=== PATIENT | male | born 2000 | race Caucasian/White ===

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

== ENCOUNTER 2020-03-19 00:22 | Emergency (ER) | payer BC ==
[2020-03-19] MEDS ORDERED: IPRATROPIUM/ALBUTEROL 3 ML VIAL NEB ONE ×2 (00:23→00:32)
[2020-03-19] MEDS ORDERED: ALBUTEROL SULFATE 2.5 MG/3 ML VIAL NEB ONE ×2 (00:30→00:32)
[2020-03-19] MEDS ORDERED: SODIUM CHLORIDE 0.9% (FLUSH) 10 ML SYG IV PRN (00:30)
[2020-03-19] MEDS ORDERED: IPRATROPIUM/ALBUTEROL 3 ML VIAL INH ONE (00:30)
[2020-03-19] MEDS ORDERED: methylPREDNISolone SODIUM SUC 125 MG/2 ML VIAL IV ONE (00:31)
[2020-03-19] MEDS ORDERED: SODIUM CHLORIDE 0.9% 1000ML 1,000 ML IVS ONE (00:31)
[2020-03-19 00:35] VITALS: TEMP 98.1
--- NOTE | 2020-03-19 00:35 | ED.PDOC ---
History of Present Illness - General Chief Complaint: Respiratory Problem Stated Complaint: having asthma attack Time Seen by Provider: 03/19/20 00:30 Source: patient, RN notes reviewed, Vital Signs reviewed Exam Limitations: no limitations - History of Present Illness Initial Comments: Patient is a 19-year-old male who presents with complaints of shortness of breath. The shortness of breath started earlier this evening, approximately 8 hours ago. Patient has a history of asthma. Patient usually has to use his inhaler once a week. Patient last used it 6 days ago and now cannot find it. Patient is speaking in 2 word responses. His respiratory difficulty is severe in nature. Nothing is making it better currently. Worse with any type of exertion or trying to speak. Patient denies any pain. Timing/Duration: 7-24 hours Severity: severe Activities at Onset: none Possible Cause: chronic episodes, allergen exposure - Patient believes his trigger is dust. Patient works in a [employer]. Improving Factors: medication - Albuterol Worsening Factors: other - Dust or pollen. Associated Symptoms: wheezing, other - Shortness of breath Respiratory Risk Factors: exposure to allergen Allergies/Adverse Reactions: Allergies Azithromycin [From Zithromax] Allergy (Verified 12/06/19 04:20) Home Medications: Ambulatory Orders Albuterol Inhaler [Ventolin Hfa Inhaler] 90 mcg INH Q6HR #1 inh 12/06/19 Albuterol Sulfate [Albuterol Sulfate Hfa] 2 puff INH Q4H #1 inhaler 03/19/20 Montelukast Sodium [Singulair] 5 mg PO 03/19/20 predniSONE 60 mg PO DAILY #15 tab 03/19/20 Review of Systems - Review of Systems Constitutional: States: no symptoms reported, see HPI. Denies: chills, fever, malaise, weakness EENTM: States: no symptoms reported. Denies: eye pain, blurred vision, double vision Respiratory: States: see HPI, cough, short of breath, wheezing. Denies: stridor Cardiology: States: no symptoms reported. Denies: chest pain, palpitations, syncope Gastrointestinal/Abdominal: States: no symptoms reported. Denies: abdominal pain, diarrhea, nausea, vomiting Genitourinary: States: no symptoms reported. Denies: dysuria, frequency, hematuria Musculoskeletal: States: no symptoms reported. Denies: back pain, joint pain, neck pain Skin: States: no symptoms reported. Denies: change in color, rash Neurological: States: no symptoms reported. Denies: headache, tingling, tremors, weakness Endocrine: States: no symptoms reported. Denies: increased hunger, increased thirst, increased urine Hematologic/Lymphatic: States: no symptoms reported. Denies: blood clots, easy bleeding All other Systems: Reviewed and Negative Past Medical History (General) - Patient Medical History Hx Seizures: No Hx Stroke: No Hx Dementia: No Hx Asthma: Yes Hx of COPD: No Hx Cardiac Disorders: No Hx Congestive Heart Failure: No Hx Pacemaker: No Hx Hypertension: No Hx Thyroid Disease: No Hx Diabetes: No Hx Gastroesophageal Reflux: No Hx Renal Disease: No Hx Cancer: No Hx of HIV: No Hx Hepatitis C: No Hx MRSA: No - Vaccination History Hx Tetanus, Diphtheria Vaccination: Yes Hx Influenza Vaccination: No - Social History Hx Chewing Tobacco Use: No Hx Alcohol Use: No Hx Substance Use: No Hx Substance Use Treatment: No Hx Depression: No Hx Physical Abuse: No Hx Emotional Abuse: No Hx Suspected Abuse: No Family Medical History - Family History Mother Family History: No Known Living Status: Still Living Physical Exam - Physical Exam General Appearance: Alert, Anxious, Obvious distress, Well Developed, Well Groomed, Well Hydrated, Well Nourished Eyes, Ears, Nose, Throat Exam: PERRL/EOMI, normal ENT inspection, pharynx normal Neck: non-tender, full range of motion, supple Respiratory: chest non-tender, decreased breath sounds - Diffusely throughout, accessory muscle use - Supraclavicular and intercostal., wheezing - Diffusely throughout Cardiovascular/Chest: normal peripheral pulses, regular rate, rhythm, no edema, no gallop, no JVD, no murmur Peripheral Pulses: radial,right: 2+, radial,left: 2+ Gastrointestinal/Abdominal: normal bowel sounds, non tender, soft, no organomegaly Extremity: normal range of motion, non-tender, normal capillary refill 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 12/12/20 00:53 Patient has had moderate improvement after a DuoNeb and an albuterol. Will give patient a high-dose continuous hour-long neb. Awaiting Covid test results. Patient's already received his IV Solu-Medrol. 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 FINDINGS: Single view of the chest was obtained portable. No prior films are available for comparison. The cardiomediastinal silhouette demonstrate to be unremarkable. The heart is not enlarged. The thoracic aorta is unremarkable. The pulmonary vasculature is normal distribution. Costophrenic angles are sharp. No areas of consolidation or masses are seen. The rest of the soft tissue and bony structures demonstrate to be unremarkable. IMPRESSION: NO ACUTE CARDIOPULMONARY DISEASE SEEN. Electronically signed by: Murphy Winslow MD 03/19/2020 12:50 AM Vital Signs 03/19/20 03/19/20 03/19/20 00:30 00:31 01:00 Temperature 98.1 F Pulse Rate 92 H 102 H Pulse Rate [ 102 H Right Radial] Respiratory 24 32 H 18 Rate Blood Pressure 125/95 [Left Arm] O2 Sat by Pulse 100 95 98 Oximetry 03/19/20 03/19/20 03/19/20 01:53 02:00 03:00 Temperature Pulse Rate Pulse Rate [ 102 H 103 H 81 Right Radial] Respiratory 18 16 14 Rate Blood Pressure 124/85 124/92 124/95 [Left Arm] O2 Sat by Pulse 100 99 98 Oximetry Departure - Departure Clinical Impression: Asthma exacerbation Qualifiers: Asthma severity: severe Asthma persistence: unspecified Qualified Code(s): J45.901 - Unspecified asthma with (acute) exacerbation Time of Disposition: 03:17 Disposition: Discharge to Home or Self Care Condition: Good Departure Forms: ED Discharge - Pt. Copy, Patient Portal Self Enrollment Instructions: Asthma, Adult (DC) Diet: resume usual diet Activity: increase activity as tolerated Prescriptions: Albuterol Sulfate [Albuterol Sulfate Hfa] 2 puff INH Q4H #1 inhaler predniSONE 60 mg PO DAILY #15 tab Home Medications: Ambulatory Orders Albuterol Inhaler [Ventolin Hfa Inhaler] 90 mcg INH Q6HR #1 inh 12/06/19 Albuterol Sulfate [Albuterol Sulfate Hfa] 2 puff INH Q4H #1 inhaler 03/19/20 Montelukast Sodium [Singulair] 5 mg PO 03/19/20 predniSONE 60 mg PO DAILY #15 tab 03/19/20
[2020-03-19] MEDS ORDERED: SODIUM CHL 0.9% 50ML VIAL 3 ML, ALBUTEROL SULFATE NEBS 15 MG NEB ONE ×2 (00:51)
--- NOTE | 2020-03-19 00:52 | RAD ---
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 FINDINGS: Single view of the chest was obtained portable. No prior films are available for comparison. The cardiomediastinal silhouette demonstrate to be unremarkable. The heart is not enlarged. The thoracic aorta is unremarkable. The pulmonary vasculature is normal distribution. Costophrenic angles are sharp. No areas of consolidation or masses are seen. The rest of the soft tissue and bony structures demonstrate to be unremarkable. IMPRESSION: NO ACUTE CARDIOPULMONARY DISEASE SEEN. Electronically signed by: Murphy Winslow MD 03/19/2020 12:50 AM PROGRAMMING INTERN
[2020-03-19 03:36] VITALS: BP 132/78; O2SAT 99
== END 2020-03-19 03:31 | disposition home or self-care (01) ==
LOC: ER 00:22
DX: J45.901 Unspecified asthma with (acute) exacerbation (principal); Z79.899 Other long term (current) drug therapy; Z88.1 Allergy status to other antibiotic agents; Z20.828 Contact with and (suspected) exposure to other viral communicable diseases
CPT/HCPCS: 71045; 87635; 94640; 94644; J2930; J7030; J7611; J7620